=== PATIENT | female | born 1985 | race Caucasian/White ===

== ENCOUNTER 2016-12-08 09:03 | Day surgery (SDC) | payer BC ==
[~2016-12-08] VITALS: Ht 172.7 cm; Wt 59.0 kg
[~2016-12-08 09:03] MED LIST: PRED FORTE100 DROP/5 RIGHT EYE
[2016-12-08 10:31] VITALS: BP 103/67
[2016-12-08 13:45] VITALS: BP 105/61
[2016-12-09 08:44] LABS: INTERNAL CONTROL VALID? YES
== END 2016-12-08 14:30 | disposition home or self-care (01) ==
LOC: SDC 09:03
PROVIDERS: Internal Medicine
DX: H33.001 Unspecified retinal detachment with retinal break, right eye (principal)
CPT/HCPCS: 84703; J0131; J0330; J0690; J1100; J2250; J2405; J2765; J3010; J3300